=== PATIENT | male | born 1985 | race Caucasian/White ===

== ENCOUNTER 2022-09-24 15:22 | Emergency (ER) | payer SELFPAY ==
[~2022-09-24] VITALS: Ht 190.5 cm; Wt 89.2 kg
[2022-09-24 15:30] VITALS: BP 131/81
[2022-09-24] MEDS ORDERED: VALACYCLOVIR HCL1 GM PO (16:07)
[2022-09-24] MEDS ORDERED: CEPHALEXIN500 M1 PO (16:07)
[2022-09-24 16:21] VITALS: BP 131/81
== END 2022-09-24 17:15 | disposition home or self-care (01) | DRG 159 ==
LOC: ED 15:22
DX: K13.0 Diseases of lips (principal)

== ENCOUNTER 2024-03-04 12:01 | Emergency (ER) | payer SELFPAY ==
[~2024-03-04] VITALS: Ht 190.5 cm; Wt 88.5 kg
[~2024-03-04 12:01] MED LIST: CEPHALEXIN500 M1 PO; VALACYCLOVIR HCL1 GM PO
[2024-03-04 12:15] VITALS: BP 122/85
[2024-03-04 12:30] VITALS: BP 126/88
[2024-03-04 12:45] VITALS: BP 143/84
[2024-03-04 13:00] VITALS: BP 123/86
[2024-03-04] MEDS ORDERED: PAXLOVID PO (13:10)
[2024-03-04 13:15] VITALS: BP 123/84
== END 2024-03-04 13:26 | disposition home or self-care (01) | DRG 179 ==
LOC: ED 12:01
DX: U07.1 COVID-19 (principal); J02.9 Acute pharyngitis, unspecified; R52 Pain, unspecified; R50.9 Fever, unspecified; R05.9 Cough, unspecified; F17.210 Nicotine dependence, cigarettes, uncomplicated